=== PATIENT | male | born 1945 | race Caucasian/White ===

== ENCOUNTER 2018-06-11 12:19 | Emergency (ER) | payer MEDICARE ==
[2018-06-11 12:38] VITALS: BP 168/93
--- NOTE | 2018-06-11 13:53 | UC ---
Skin Complaint HPI - HPI Summary HPI Summary: Started w/ itching skin a few wks ago, he is unsure what caused this. Denies new products on skin or clothes. Itching are in extremities only. then a few days ago noticed small pimple on L calf, R thigh 2 areas. applied hydrogen peroxide to these areas as he continued to scratch b/c it was still itchy. areas became infected and he applied colloidal silver. this made area more red and open up. - History of Current Complaint Chief Complaint: UCRash Time Seen by Provider: 06/11/18 13:38 Stated Complaint: RASH, AND SORES ON SKIN Hx Obtained From: Patient Onset/Duration: Gradual Onset Skin Exposure Onset/Duration: Days Ago Onset Severity: Moderate Pain Intensity: 0 Pain Scale Used: 0-10 Numeric Location: Discrete Aggravating Factor(s): OTC Meds - colloidal silver Alleviating Factor(s): Nothing Associated Signs & Symptoms: Positive: Negative - Allergy/Home Medications Allergies/Adverse Reactions: Allergies Allergy/AdvReac Type Severity Reaction Status Date / Time No Known Allergies Allergy Verified 06/11/18 12:38 Home Medications: Home Medications Carvedilol [Coreg] 12.5 mg PO DAILY WITH MEAL 06/11/18 [History Confirmed ] Metformin ER (NF) 500 mg PO BEDTIME 06/11/18 [History Confirmed 06/11/18] Telmisartan 80 mg PO DAILY WITH MEAL 06/11/18 [History Confirmed 06/11/18] Warfarin TAB(*) [Coumadin TAB(*)] 5 mg PO DAILY 06/11/18 [History Confirmed 03/21] Review of Systems All Other Systems Reviewed And Are Negative: Yes Constitutional: Positive: Negative Skin: Positive: Rash Respiratory: Positive: Negative Cardiovascular: Positive: Negative PMH/Surg Hx/FS Hx/Imm Hx Previously Healthy: Yes Cardiovascular History: Hypertension - Surgical History Surgical History: None - Social History Alcohol Use: Weekly Substance Use Type: None Smoking Status (MU): Never Smoked Tobacco - Immunization History Most Recent Influenza Vaccination: 2012 Most Recent Tetanus Shot: as a child Most Recent Pneumonia Vaccination: none Physical Exam Triage Information Reviewed: Yes Appearance: Well-Appearing Vital Signs: Initial Vital Signs Temp 98.3 F 06/11/18 12:33 Pulse 84 06/11/18 12:33 Resp 18 06/11/18 12:33 BP 168/93 06/11/18 12:33 Pulse Ox 100 06/11/18 12:33 Vital Signs Reviewed: Yes Neck: Positive: No Lymphadenopathy Respiratory Exam: Normal Cardiovascular Exam: Normal Skin: Positive: Other - R thigh has a small healing area at upper outer groin. R thigh also has 6 inch patch of redness, and central superficial opening. L post. calf has approx 2 in. area of open skin, also superficial. no purulent discharge. Course/Dx - Course Course Of Treatment: cleaned area and applied topical antibx. unclear cause of initial itching but appears area got superficial infection. advised vaseline for moisture, topical steroid for irritation areas. f/u w/ pcp re: htn, no cardiac/neuro symptoms. - Differential Diagnoses - Skin Complaint Differential Diagnoses: Abscess, Tinea, Viral Exanthem, Other - Diagnoses Provider Diagnoses: superificial wounds; elevated blood pressure Discharge - Sign-Out/Discharge Documenting (check all that apply): Patient Departure All imaging exams completed and their final reports reviewed: No Studies - Discharge Plan Condition: Good Disposition: HOME Prescriptions: Hydrocortisone 0.5% OINT* 1 applic TOPICAL ONCE #1 tube Patient Education Materials: Abrasion (ED) Referrals: Sheela Acevedo MD [Primary Care Provider] - Additional Instructions: use topical steroid for your arms and itching. for the open areas on your legs apply antibiotic cream and keep area dry/clean. follow up with your pcp to find out why you are itching and scratching. please follow up with your pcp about your high blood pressure. - Billing Disposition and Condition Condition: GOOD Disposition: Home
== END 2018-06-11 14:17 | disposition home or self-care (01) ==
LOC: UCEAST 12:19
DX: S70.921A Unspecified superficial injury of right thigh, initial encounter (principal); S80.922A Unspecified superficial injury of left lower leg, initial encounter; R03.0 Elevated blood-pressure reading, without diagnosis of hypertension; I10 Essential (primary) hypertension; Z79.01 Long term (current) use of anticoagulants; Z79.899 Other long term (current) drug therapy; X58.XXXA Exposure to other specified factors, initial encounter; Y92.9 Unspecified place or not applicable
CPT/HCPCS: 99212; G0463

== ENCOUNTER 2023-07-30 05:57 | Observation (INO) ==
[~2023-07-30 05:57] MED LIST: Naloxone 0.4 mg VIAL 0.4 mg/ml 1 ml VIAL IV PRN; Ondansetron 4 mg VIAL 2 MG/ML 2 ml VIAL IV PRN; fentaNYL 100 mcg/2 ml 50 MCG/ML VIAL IV PRN
[2023-07-30] MEDS ORDERED: Buffered Lidocaine 1% SYRIN 1 ml INTRADERM ONE (06:00)
[2023-07-30] MEDS ORDERED: cefTRIAXone 2 gm/50 mL D5W 2 GM/50 ML BAG IV ONE (06:16)
[2023-07-30] MEDS ORDERED: Ondansetron 4 mg VIAL 2 MG/ML 2 ml VIAL ONE (06:54)
[2023-07-30] MEDS ORDERED: Glycopyrrolate IV 0.2 MG/ML 1 ML VIAL ONE (06:54)
[2023-07-30] MEDS ORDERED: Propofol 10 MG/ML 20 ML BTL ONE (06:54)
[2023-07-30] MEDS ORDERED: Sevoflurane BOTTLE ONE (06:57)
[2023-07-30] MEDS ORDERED: Phenylephrine 40 mcg/mL 10mL (400mcg) SYRINGE ONE ×2 (06:57→07:53)
[2023-07-30] MEDS ORDERED: Lidocaine 2% PF 5 ML VIAL ONE (06:57)
[2023-07-30] MEDS ORDERED: Iohexol 180 (CONTRAST) 10 ML SDV IV ONE (06:57)
[2023-07-30] MEDS ORDERED: Gentamicin ADULT 160 MG in NS 0.9% 100 ml BAG 100 ML IVPB ONE (07:00)
[2023-07-30 07:02] LABS: Rapid COVID-19 Molecular Undetected (Undetected)
[2023-07-30] MEDS ORDERED: Midazolam 2 mg/2 ml VIAL 1 mg/ml 2 ml VIAL (2 mg) ONE (07:03)
[2023-07-30] MEDS ORDERED: fentaNYL 100 mcg/2 ml 50 MCG/ML VIAL ONE (07:03)
[2023-07-30] MEDS ORDERED: EPINEPHrine SULFITE FREE 1 MG/ML ONE (07:18)
[2023-07-30] MEDS ORDERED: Phenylephrine IV 10 MG/ML 1 ml VIAL ONE (07:20)
[2023-07-30] MEDS ORDERED: Metoclopramide 5 MG/ML VIAL (10 mg) ONE (07:24)
[2023-07-30] MEDS ORDERED: Famotidine IV 10 MG/ML 2 ml VIAL (20 mg) ONE (07:26)
[2023-07-30 07:29] LABS: INR 1.12 (0.83-1.13)
[2023-07-30] MEDS ORDERED: Sodium Chloride 0.9% 20 ML ONE (08:30)
[2023-07-30] MEDS ORDERED: Dexamethasone IV 4 MG/ML VIAL 1 ml VIAL ONE (08:58)
[2023-07-30] MEDS ORDERED: Furosemide 20 mg/2 ml IV VIAL ONE (09:10)
[2023-07-30] MEDS ORDERED: Dextrose 50% Syringe 50 ml 25 GM/50 ML SYRINGE IV PUSH PRN (10:54)
[2023-07-30] MEDS: Lactated Ringers 1000 ml BAG 1,000 ML IV SCH ×2 (14:13→14:23)
[2023-07-31] MEDS: Lactated Ringers 1000 ml BAG 1,000 ML IV SCH (00:24)
[2023-07-31 06:03] LABS: Calcium 8.3 mg/dL (8.6-10.3); Creatinine, Serum 0.75 mg/dL (0.67-1.17); Potassium 4.1 mmol/L (3.5-5.0); eGFR CKD-EPI 92.9 (>60)
[2023-07-31 12:07] VITALS: BP 108/62
== END 2023-07-31 12:55 | disposition home or self-care (01) ==
LOC: OR 05:57 → SSU 05:57
PROVIDERS: ADMIT Urology; ATTEND Urology